=== PATIENT | female | born 1965 | race Asian ===

== ENCOUNTER 2016-12-17 11:16 | Inpatient (IN) | payer OTHER ==
[~2016-12-17] VITALS: Ht 162.6 cm; Wt 53.6 kg
[~2016-12-17 11:16] MED LIST: BIOTIN PLUS KE1 EACH PO; COQ-10100 MG PO; D3-20002000 UNIT PO; GABAPENTIN600 MG PO; LORTAB 5-325 M1 EACH PO; MELOXICAM15 MG PO; OXYBUTYNIN CHLOR5 MG PO; TAMOXIFEN CITRA20 MG PO; VITAMIN C 500500 MG PO
[2016-12-18 04:22] LABS: RED BLOOD COUNT 2.97 M/UL (4.00-5.10); WHITE BLOOD COUNT 7.2 K/UL (4.5-11.0)
[2016-12-18 04:23] LABS: HEMOGLOBIN 9.2 gm/dl (12.3-15.3)
[2016-12-18 04:38] LABS: BUN/CREATININE RATIO 20 (0-10)
[2016-12-19 06:42] LABS: HEMOGLOBIN 11.9 gm/dl (12.3-15.3); RED BLOOD COUNT 3.7 M/UL (4.00-5.10); WHITE BLOOD COUNT 9.7 K/UL (4.5-11.0)
[2016-12-19 06:47] LABS: BUN/CREATININE RATIO 18 (0-10)
[2016-12-19] MEDS ORDERED: OXYCODONE HCL5 M1 PO (14:20)
== END 2016-12-19 17:29 | disposition home or self-care (01) | DRG 472 ==
LOC: ZOBSOF 11:16 → EDSTATUS 13:30 → OR 13:30 → M/S 15:30 → OR 15:30 → M/S 18:40
PROVIDERS: ADMIT Orthopaedic Surgery
PROC: 0RG20K0 Fusion of 2 or more Cervical Vertebral Joints with Nonautologous Tissue Substitute, Anterior Approach, Anterior Column, Open Approach (ICD-10-PCS; 2016-12-17)
PROC: 0RT30ZZ Resection of Cervical Vertebral Disc, Open Approach (ICD-10-PCS; 2016-12-17)
PROC: 0RG20A0 Fusion of 2 or more Cervical Vertebral Joints with Interbody Fusion Device, Anterior Approach, Anterior Column, Open Approach (ICD-10-PCS; principal; 2016-12-17 15:30)
DX: M84.58XA Pathological fracture in neoplastic disease, other specified site, initial encounter for fracture (principal); C79.51 Secondary malignant neoplasm of bone; C50.912 Malignant neoplasm of unspecified site of left female breast; M54.12 Radiculopathy, cervical region; Z79.810 Long term (current) use of selective estrogen receptor modulators (SERMs); Z79.891 Long term (current) use of opiate analgesic; Z79.899 Other long term (current) drug therapy; Z88.3 Allergy status to other anti-infective agents; Z28.21 Immunization not carried out because of patient refusal; Z90.13 Acquired absence of bilateral breasts and nipples; Z98.82 Breast implant status; Z98.890 Other specified postprocedural states
CPT/HCPCS: 36415; 72040; 76000; 80048; 85025; 97116; C1713; J1200; J1885; J2250; J2370; J2405; J2710; J3010; J7030; J7040; J7120